=== PATIENT | female | born 2000 | race Caucasian/White ===

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

== ENCOUNTER 2021-11-14 13:15 | Emergency (ER) | payer MEDICAID ==
[~2021-11-14] VITALS: Ht 157.5 cm; Wt 53.5 kg
--- OUTSIDE RECORDS SUMMARY | 2021-11-14 13:24 | XMS ---
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 No recent Security Events currently on file CRITERIA MET - [facility] - 2 Visits in 30 Days - 6 ED Visits in 6 Months - [facility] - 3 Facilities in 90 Days CARE PROVIDERS MASSIEL ADLER Obstetrics \T\ Gynecology Current PHONE: Unknown HEALTHCARE,, Clinic/Center: [facility] ([facility]) PHONE: Unknown WILTON TIMMONS Emergency [facility] Jocelyne PAMELA PHONE: [phone] [facility]: [phone] [facility] Current SYSTEM \F\ CAROLYNN WRIGHT PHONE: [phone] [facility] Medicine Current PHYSICIANS DEREK \F\ NEP PHONE: Unknown [facility] Internal Medicine Current [facility] PHONE: [phone] [facility] Current \F\ [facility] PHONE: [phone] THERESE ELENA Emergency Medicine Current PHONE: [phone] [facility] PHONE: [phone] [facility] Emergency Medicine [facility] PHONE: [phone] ABELINO HAY Nurse Practitioner: Family Current PHONE: Unknown MARLIN KELLY 06/19/2019-Current PHONE: Unknown Care Guidelines exist for the following facilities: [facility] ( 01/09/2021 ) [place] VISIT COUNT (12 MO.) [address] [facility] [address] [facility] 1 [facility]. 1 [facility] TOTAL 9 NOTE: Visits indicate total known visits. ED/UCC VISIT TRACKING (12 MO.) 11/14/2021 13:17 ARAVIND Darnell [place] TYPE: Emergency COMPLAINT: - DIFFICULTY BREATHING 10/21/2021 12:18 [facility] TYPE: Emergency DIAGNOSES: - Pelvic and perineal pain - Antepartum hemorrhage, unspecified, unspecified trimester - Other specified related conditions, first trimester 09/25/2021 13:01 [facility] TYPE: Emergency DIAGNOSES: - Cannabis use, unspecified, uncomplicated - Nausea with vomiting, unspecified [facility] 16[facility] DIAGNOSES: - vomitting - Cyclical vomiting syndrome unrelated to migraine - Nausea 05/26/2021 20:16 [facility] [place] TYPE: Emergency DIAGNOSES: - Local infection of the skin and subcutaneous tissue, unspecified - Sebaceous cyst 05/26/2021 19:[facility] 05/16/2021 14:12 [facility] TYPE: Emergency DIAGNOSES: - Cyclical vomiting syndrome unrelated to migraine - Emesis - vomiting, abd pain 04/05/2021 05:[facility] DIAGNOSES: - Cannabis dependence with other cannabis-induced disorder - N/V - Emesis 03/09/2021 06:26 [facility] TYPE: Emergency DIAGNOSES: - Emesis - N/V - Cyclical vomiting syndrome unrelated to migraine INPATIENT VISIT TRACKING (12 MO.) No inpatient visits to display in this time frame [email or web address]
[2021-11-14] MEDS ORDERED: PREDNISONE20 MG PO (16:04)
== END 2021-11-14 16:19 | disposition home or self-care (01) ==
LOC: ED 13:15
DX: J98.01 Acute bronchospasm (principal); J06.9 Acute upper respiratory infection, unspecified; Z20.822 Contact with and (suspected) exposure to COVID-19; F17.200 Nicotine dependence, unspecified, uncomplicated; Z79.899 Other long term (current) drug therapy
CPT/HCPCS: 71045; 94640; 94664; 99285-25; C9803; J7512; U0003